=== PATIENT | male | born 1995 | race Caucasian/White ===

== ENCOUNTER 2020-05-21 13:41 | Emergency (ER) | payer OTHER, MEDICAID, SELFPAY ==
[2020-05-21 13:49] VITALS: BP 130/63; PULSE 92; RESP 16; TEMP 37; O2SAT 96; BMI 44.9
--- NOTE | 2020-05-21 13:58 | XR_ITS ---
WS: [id number] RIGHT ANKLE: 3 VIEW(S) TECHNIQUE: AP, oblique(s) and lateral. HISTORY: fall COMPARISON: None available. Oblique fracture in the distal fibular diaphysis with minimal separation along the fracture line by 3 mm. There is very slight lateral bowing at the apex of the fracture. Transverse fracture through the medial malleolus and also vertical fracture of the posterior malleolu s. No significant degenerative changes at the joint spaces. Large amount of soft tissue edema. XR/XR ankle RT min 3V* [id number] IMPRESSION: 1. Minimally displaced oblique fracture distal fibular diaphysis. 2. Nondisplaced transverse fracture medial malleolus. 3. Vertical posterior malleolus fracture.
[2020-05-21 13:59] VITALS: BP 148/54; PULSE 90; PULSE 92; RESP 18; O2SAT 97
--- NOTE | 2020-05-21 14:00 | ED_ITS ---
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 And having problems bearing weight now. Does have bruising and swelling to the foot and ankle. MD Complaint: joint swelling and joint pain Onset (ago): day(s) Pain Consistency: constant Location: right and lower extremity Severity scale (1-10): 5 Quality: aching Radiation: none Relieving factors: immobilization Exacerbating factors: range of motion and weight bearing Associated symptoms: Reports no associated symptoms; Deny chest pain, fever(s) or rash Review of Systems Const: Denies: fever(s), chills or body aches Eyes: Denies: change in vision or blurry vision ENMT: Denies: throat pain or nasal congestion Card: Denies: chest pain or dyspnea on exertion Resp: Denies: dyspnea, productive cough or non-productive cough GI: Denies: abdominal pain, nausea or vomiting : Denies: difficulty urinating Musc: Reports: joint pain (Right ankle) and joint swelling; Denies: extremity pain Skin/Breast: Denies: rash Neuro: Denies: headache(s) Psych: Denies: anxiety or depression Reggie/Lymph: Denies: easy bruising PFS ED PFSH: Social History (Updated 05/21/20 @ 13:56 by Cosme Alaniz RN) Smoking and tobacco status: never smoked Alcohol intake: never Substance/Drug Use: never Physical Exam Const: COMMON NORMALS: no acute distress, average body habitus and patient oriented x3 HENMT: COMMON NORMALS: normocephalic HEAD & SCALP: normal to inspection and normocephalic FACE & SINUS: normal facial exam Eye: COMMON NORMALS: conjunctivae normal GENERAL EYE: appearance normal, both eyes and all related structures CONJUNCTIVA: Yes conjunctivae normal Neck/C-Spine: COMMON NORMALS: no JVD Chest: COMMONS NORMALS: normal inspection of the chest Resp: COMMON NORMALS: normal respiratory effort Cardio: COMMON NORMALS: no JVD GI: INSPECTION: Yes normal to inspection Extremity: COMMON NORMALS: normal to inspection and full ROM RIGHT LOWER EXTREMITY: Yes foot & digits (Has bruising swelling to the right ankle with tenderness to the medial aspe) Neuro: COMMON NORMALS: patient oriented x3 Course Vital Signs: Vital signs: Vital Signs Temperature 98.6 F 05/21/20 13:49 Pulse Rate 92 05/21/20 13:49 Respiratory Rate 16 05/21/20 13:49 Blood Pressure 130/63 05/21/20 13:49 Pulse Oximetry 96 05/21/20 13:49 Coding Level of Care Code ED Driving Instructor for Kt Kelley
[2020-05-21 14:11] VITALS: BP 102/50; PULSE 66; RESP 18; TEMP 36.6; O2SAT 97
[2020-05-21] MEDS: HYDROcodone-acetaminophen 7.5-325 mg Tablet 1 TAB PO (15:00)
[2020-05-21 15:03] VITALS: BP 110/55; PULSE 88; RESP 18; TEMP 37.2; O2SAT 96
--- NOTE | 2020-05-25 15:33 | DCPLANNER ---
manager product had message to schedule a follow up appointment with ortho at [facility] in [place]. manager product faxed patients information to [facility]. Clinic will call patient with appointment information. manager product will call for appointment information.
--- NOTE | 2020-05-27 12:31 | DCPLANNER ---
Patient has a follow up appointment scheduled for Sunday, May 31, 2020 at 12:00 at clinic. Clinic called patient with appointment information.
--- NOTE | 2020-06-22 12:03 | DCPLANNER ---
Patient had a follow up appointment scheduled for 05.31.20 with [facility] - patient did attend appointment.
== END 2020-05-21 15:08 | disposition home or self-care (01) ==
PROVIDERS: Emergency Provider Nurse Practitioner Family
DX: M25.571 Pain in right ankle and joints of right foot (principal)
CPT/HCPCS: 12345; 29515; 73610; 99281; 99283

== ENCOUNTER 2022-06-17 11:39 | Emergency (ER) | payer MEDICAID, SELFPAY ==
[2022-06-17 11:58] VITALS: BP 129/86; PULSE 77; RESP 20; TEMP 36.4; O2SAT 97; BMI 51.3
--- NOTE | 2022-06-17 12:08 | ED_ITS ---
HPI - Back Pain/Injury General: Chief Complaint: Back Pain/Injury Stated Complaint: back pain Time Seen by Provider: 06/17/22 11:49 History of Present Illness: 27-year-old male presents emergency complaining of low back pain. He took some ibuprofen this morning it did not seem to help very much. Vomited once in the triage room. He denies any fever sweats chills. No recent illness cough or cold symptoms. Pain began after he had been in a car for an extended period of time and then was lifting some packages carrying him into the house. No previous advanced imaging of his back no history of trauma no previous history of surgery. He has had back pain issues in the past refers back into the lower lumbar region. No radiation of pain to the lower extremities no difficulty with bowel or bladder. MD elicited complaint: back pain Pertinent past history: prior back pain Onset (ago): day(s) Timing: constant Severity: moderate Quality: sharp Location: lumbar spine Radiation: none Exacerbating factors: none Relieving factors: none Associated symptoms: Deny abdominal pain, arthralgias, chills, change in bowel habits, difficulty walking, dysuria, fatigue, fecal incontinence, fever(s), hematuria, myalgias, nausea, numbness, syncope, tingling/numbness/burning, urinary frequency, urinary urgency, vomiting or weakness Review of Systems Const: Denies: fever(s), chills or fatigue Card: Denies: syncope GI: Denies: abdominal pain, nausea, vomiting, fecal incontinence or change in bowel habits : Denies: flank pain, dysuria, urinary frequency, urinary urgency or hematuria Skin/Breast: Denies: rash or pruritus Neuro: Denies: difficulty walking PFSH ED PFSH: Medical History (Updated 06/17/22 @ 12:21 by Alvin Hollis DO) Obesity Social History (Updated 05/21/20 @ 13:56 by Cosme Alaniz RN) Smoking and tobacco status: never smoked Alcohol intake: never Physical Exam Const: COMMON NORMALS: no acute distress GENERAL APPEARANCE: cooperative and comfortable ORIENTATION/CONSCIOUSNESS: Yes awake, Yes oriented to person, Yes oriented to place and Yes oriented to time HENMT: COMMON NORMALS: normocephalic, atraumatic and hearing grossly normal bilaterally HEAD & SCALP: normocephalic and atraumatic Lymph: LYMPHATIC: no lymphadenopathy noted and no lymphedema noted Resp: COMMON NORMALS: normal respiratory effort, No retractions, No use of accessory muscles and clear to auscultation bilaterally AUSCULTATION: clear to auscultation bilaterally Cardio: COMMON NORMALS: regular rate, regular rhythm and No murmurs present (Cardio) RATE: regular rate RHYTHM: regular rhythm Extremity: COMMON NORMALS: normal to inspection, capillary refill normal, no clubbing, cyanosis or edema, no calf tenderness and no pedal edema Neuro: SENSORIUM/ORIENTATION: Yes oriented to person, Yes oriented to place and Yes oriented to time OTHER: Dorsum plantar flexion 5/5 sensation normal straight leg raising negative. Skin: COMMON NORMALS: no rashes or lesions noted GENERAL SKIN EXAM: no rashes or lesions noted Course Vital Signs: Vital signs: Vital Signs Temperature 97.6 F 06/17/22 11:58 Pulse Rate 77 06/17/22 11:58 Respiratory Rate 20 H 06/17/22 11:58 Blood Pressure 129/86 06/17/22 11:58 Pulse Oximetry 97 06/17/22 11:58 Oxygen Delivery Me thod 06/17/22 11:58 MDM - Back Pain/Injury Medical Decision Making Musculoskeletal back pain with no previous injury from trauma no previous surgery no history of cancer. Treat conservatively patient given steroids muscle relaxer and anti-inflammatory in the emergency room discharged home with oral forms of same follow-up with primary care if not improving may need referral to PT Medical Records I reviewed the patient's medical records. Labs I reviewed the patient's lab results. Discharge Plan Discharge Patient Disposition: Home Clinical Impression: Strain of lumbar region Condition: Stable Prescriptions: New prednisone 20 mg tablet 20 mg PO TID Qty: 15 0RF Rx Instructions: 1 p.o. 3 times daily x3 days, 1 p.o. twice daily x2 days, 1 p.o. daily x2 days diclofenac sodium 75 mg tablet,delayed release (DR/EC) 75 mg PO Q12H PRN (Reason: pain) Qty: 20 0RF tizanidine 4 mg capsule 4 mg PO Q6H PRN (Reason: muscle spasticity) Qty: 20 0RF Discontinued ibuprofen 200 mg Tablet 200 mg PO Q6H PRN (Reason: Pain) hydrocodone-acetaminophen 5-325 mg tablet 1 tab PO TID PRN (Reason: pain) Qty: 14 0RF No Action topiramate 200 mg tablet 200 mg PO BID lorazepam 1 mg tablet 1 mg PO BID PRN (Reason: Anxiety) fluoxetine 20 mg capsule 80 mg PO DAILY Tylenol 325 mg Tablet 325 mg PO QID PRN (Reason: Pain) Discharge Orders: Discharge ED (Routine); Ordered 06/17/22 Ordered By: Alvin Hollis Discharge Diet: Usual diet Discharge Activity: Limit activity as instructed Patient Instructions: Back Pain (ED), Opioid Safety, Pain Management Coding Level of Care Code ED Pressure Control Supervisor for Kt Kelley
[2022-06-17] MEDS: ketorolac 60 mg/2 mL INJ IM (12:28)
[2022-06-17] MEDS: orphenadrine 30 mg/mL Inj 2 mL 60 MG IM (12:29)
[2022-06-17] MEDS: dexamethasone 10 mg/mL INJ IM (12:29)
== END 2022-06-17 12:41 | disposition home or self-care (01) ==
PROVIDERS: Emergency Provider Family Medicine; PCP Pediatrics
DX: S39.012A Strain of muscle, fascia and tendon of lower back, initial encounter (principal); X50.0XXA Overexertion from strenuous movement or load, initial encounter
CPT/HCPCS: 96372; 99284; J1100; J1885; J2360